=== PATIENT | female | born 2000 | race Caucasian/White ===

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

== ENCOUNTER 2023-01-08 16:46 | Emergency (ER) | payer OTHER ==
[2023-01-08 16:59] VITALS: BP 116/74; PULSE 88; RESP 18; TEMP 98.9; BMI 26.2
== END 2023-01-08 20:55 | disposition left against medical advice (07) ==
LOC: JERFT 16:46
DX: S80.911A Unspecified superficial injury of right knee, initial encounter (principal); M79.604 Pain in right leg; W19.XXXA Unspecified fall, initial encounter
CPT/HCPCS: 99281-25

== ENCOUNTER 2023-02-26 03:09 | Emergency (ER) | payer OTHER ==
[2023-02-26 03:43] VITALS: RESP 18; BMI 26.2
[2023-02-26] MEDS ORDERED: ACETAMINOPHEN INJECTION 100 ML IVPB ONE (03:52)
[2023-02-26] MEDS ORDERED: ACETAMINOPHEN 1000 MG/100 ML BAG IVPB ONE (03:55)
[2023-02-26 04:47] LABS: CHLORIDE 111 mmol/L (98-107); POTASSIUM 3.7 mmol/L (3.5-5.1); SODIUM 141 mmol/L (136-145)
[2023-02-26 04:49] LABS: CALCIUM 8.9 mg/dL (8.5-10.1)
[2023-02-26 04:50] LABS: ALBUMIN 3.7 g/dl (3.4-5.0); ANION GAP 6 MMOL/L (8-16); CO2 24 mmol/L (21-32); GLUCOSE,RANDOM 86 mg/dL (74-106)
[2023-02-26 04:53] LABS: CREATININE 0.6 mg/dL (0.55-1.3); SGOT/AST 16 U/L (15-37); SGPT/ALT 26 U/L (13-61)
[2023-02-26 04:54] LABS: TOT PROT 7.5 g/dl (6.4-8.2)
[2023-02-26 04:55] LABS: BILIRUBIN,TOTAL 0.1 mg/dL (0.2-1)
[2023-02-26 04:56] LABS: ALK PHOS 113 U/L (45-117)
[2023-02-26 04:59] LABS: EPI CELLS >36 /uL (0-25.1); HYALINE CASTS 1 /uL (0-3.1); URINE APPEARANCE CLEAR; URINE BILIRUBIN NEGATIVE (NEGATIVE); URINE COLOR YELLOW; URINE GLUCOSE (UA) NEGATIVE (NEGATIVE); URINE KETONE NEGATIVE (NEGATIVE); URINE LEUK ESTERASE NEGATIVE (NEGATIVE); URINE NITRITE NEGATIVE (NEGATIVE); URINE PROTEIN NEGATIVE (NEGATIVE); URINE RBC 5 /uL (0-23.9); URINE WBC 31 /uL (0-25.8)
[2023-02-26 05:54] LABS: BASO % 0.7 % (0-2.0); EOS % 1.9 % (0-4.5); HEMATOCRIT 37.7 % (32.4-45.2); HEMOGLOBIN 12.4 GM/dL (10.7-15.3); LYMPH % 31.1 % (8-40); MCH 28.5 pg (25.7-33.7); MCHC 32.8 g/dl (32.0-36.0); MEAN CELL VOLUME 86.8 fl (80-96); MEAN PLT VOLUME 11.4 fl (7.5-11.1); MONO % 7.6 % (3.8-10.2); NEUT % 58.7 % (42.8-82.8); PLATELET COUNT 213 10^3/uL (134-434); RBC 4.34 M/mm3 (3.60-5.2); RDW 13.7 % (11.6-15.6); WHITE BLOOD COUNT 7.9 K/mm3 (4.0-10.0)
[2023-02-26 10:11] VITALS: BP 107/68; PULSE 72; TEMP 98.2
== END 2023-02-26 10:11 | disposition home or self-care (01) ==
LOC: JER 03:09
PROC: 3E033NZ Introduction of Analgesics, Hypnotics, Sedatives into Peripheral Vein, Percutaneous Approach (ICD-10-PCS; principal; 2023-02-26)
DX: M25.521 Pain in right elbow (principal); R10.32 Left lower quadrant pain; M25.552 Pain in left hip
CPT/HCPCS: 36415; 73070-TC-RT-FY; 74177-TC; 80053; 81003; 84702; 85025; 85651; 86038; 86140; 86225; 86850; 86900; 86901; 87040; 87086; 93005; 93010; 99284-25; Q9967

== ENCOUNTER 2023-06-23 22:45 | Emergency (ER) | payer OTHER ==
[2023-06-23 22:52] VITALS: BMI 26.2
[2023-06-23] MEDS ORDERED: ACETAMINOPHEN 1000 MG/100 ML BAG IVPB ONE (23:18)
[2023-06-23] MEDS ORDERED: ONDANSETRON *ODT* 4 MG TABLET SL ONE (23:18)
[2023-06-23] MEDS ORDERED: ONDANSETRON *ODT* 4 MG TABLET ONE (23:27)
[2023-06-23] MEDS ORDERED: ACETAMINOPHEN INJECTION 100 ML IVPB ONE (23:27)
[2023-06-24 01:32] LABS: ACTIVATED PTT 35.8 SECONDS (25.2-36.5)
[2023-06-24 01:54] LABS: BASO % 0.3 % (0-2.0); EOS % 1.1 % (0-4.5); HEMATOCRIT 35.2 % (32.4-45.2); HEMOGLOBIN 12.1 GM/dL (10.7-15.3); LYMPH % 29.5 % (8-40); MCH 29.4 pg (25.7-33.7); MCHC 34.3 g/dl (32.0-36.0); MEAN CELL VOLUME 85.9 fl (80-96); NEUT % 62.1 % (42.8-82.8); PLATELET COUNT 192 10^3/uL (134-434); RDW 13.7 % (11.6-15.6); WHITE BLOOD COUNT 8.3 K/mm3 (4.0-10.0)
[2023-06-24 02:03] LABS: INR 1.16 (0.83-1.09); PROTHROMBIN TIME (PATIENT) 13.4 SEC (9.7-13.0)
[2023-06-24 02:32] LABS: POTASSIUM 3.8 mmol/L (3.5-5.1)
[2023-06-24 02:34] LABS: ALBUMIN 3.5 g/dl (3.4-5.0); BLOOD UREA NITROGEN 15.8 mg/dL (7-18); CALCIUM 8.3 mg/dL (8.5-10.1)
[2023-06-24 02:37] LABS: CREATININE 0.5 mg/dL (0.55-1.3)
[2023-06-24 02:39] LABS: BILIRUBIN,TOTAL 0.1 mg/dL (0.2-1)
[2023-06-24 03:35] VITALS: BP 106/55; PULSE 71; RESP 16; TEMP 98.6
[2023-06-24 08:39] LABS: EPI CELLS >36 /uL (0-25.1); HYALINE CASTS 0 /uL (0-3.1); URINE APPEARANCE CLEAR; URINE BACTERIA 7089 /uL (0-1359); URINE BILIRUBIN NEGATIVE (NEGATIVE); URINE COLOR YELLOW; URINE GLUCOSE (UA) NEGATIVE (NEGATIVE); URINE KETONE NEGATIVE (NEGATIVE); URINE LEUK ESTERASE TRACE (NEGATIVE); URINE NITRITE NEGATIVE (NEGATIVE); URINE PROTEIN NEGATIVE (NEGATIVE); URINE RBC 6 /uL (0-23.9); URINE WBC 34 /uL (0-25.8)
== END 2023-06-24 04:08 | disposition home or self-care (01) ==
LOC: JER 22:45
PROC: 3E033NZ Introduction of Analgesics, Hypnotics, Sedatives into Peripheral Vein, Percutaneous Approach (ICD-10-PCS; principal; 2023-06-24)
PROC: 3E033GC Introduction of Other Therapeutic Substance into Peripheral Vein, Percutaneous Approach (ICD-10-PCS; 2023-06-24)
DX: O26.891 Other specified pregnancy related conditions, first trimester (principal); R10.84 Generalized abdominal pain; M54.9 Dorsalgia, unspecified; N89.8 Other specified noninflammatory disorders of vagina; R11.0 Nausea; Z3A.01 Less than 8 weeks gestation of pregnancy
CPT/HCPCS: 36415; 76705-TC; 76817-TC; 80053; 81003; 83690; 84702; 84703; 85025; 85610; 85730; 86850; 86900; 86901; 87086; 87186; 99284-25; Q0162

== ENCOUNTER 2023-06-27 21:48 | Emergency (ER) | payer OTHER ==
[2023-06-27 22:12] VITALS: BP 96/61; PULSE 100; RESP 16; TEMP 98.6; BMI 26.2
[2023-06-28] MEDS ORDERED: ONDANSETRON *ODT* 4 MG TABLET SL ONE (01:01)
[2023-06-28] MEDS ORDERED: ONDANSETRON *ODT* 4 MG TABLET ONE (01:17)
[2023-06-28] MEDS ORDERED: ACETAMINOPHEN 325 MG TABLET (FP) PO ONE (01:21)
[2023-06-28] MEDS ORDERED: ACETAMINOPHEN 325 MG TABLET (FP) ONE (01:29)
[2023-06-28] MEDS ORDERED: ONDANSETRON 4 MG/2 ML VIAL IVPUSH ONE (03:13)
[2023-06-28] MEDS ORDERED: ONDANSETRON 4 MG/2 ML VIAL ONE (03:13)
== END 2023-06-28 04:50 | disposition home or self-care (01) ==
LOC: JER 21:48
PROC: 3E033GC Introduction of Other Therapeutic Substance into Peripheral Vein, Percutaneous Approach (ICD-10-PCS; principal; 2023-06-28)
DX: O26.899 Other specified pregnancy related conditions, unspecified trimester (principal); R42 Dizziness and giddiness; R10.30 Lower abdominal pain, unspecified; M54.9 Dorsalgia, unspecified; R11.0 Nausea; O9A.219 Injury, poisoning and certain other consequences of external causes complicating pregnancy, unspecified trimester; Z3A.00 Weeks of gestation of pregnancy not specified; W19.XXXA Unspecified fall, initial encounter
CPT/HCPCS: 36415; 76817-TC; 84702; 99284-25; Q0162

== ENCOUNTER 2023-07-10 17:42 | Emergency (ER) | payer OTHER ==
[2023-07-10 17:50] VITALS: TEMP 98; BMI 26.2
[2023-07-10 19:07] LABS: BASO % 0.4 % (0-2.0); EOS % 0.4 % (0-4.5); HEMATOCRIT 38.3 % (32.4-45.2); HEMOGLOBIN 12.9 GM/dL (10.7-15.3); LYMPH % 18.4 % (8-40); MCH 28.8 pg (25.7-33.7); MCHC 33.6 g/dl (32.0-36.0); MEAN PLT VOLUME 9.9 fl (7.5-11.1); MONO % 6.7 % (3.8-10.2); NEUT % 74.1 % (42.8-82.8); PLATELET COUNT 226 10^3/uL (134-434); RBC 4.46 M/mm3 (3.60-5.2); RDW 13.7 % (11.6-15.6); WHITE BLOOD COUNT 9.6 K/mm3 (4.0-10.0)
[2023-07-10 20:29] VITALS: BP 105/65; PULSE 85; RESP 17
== END 2023-07-10 20:31 | disposition home or self-care (01) ==
LOC: JER 17:42
DX: O20.9 Hemorrhage in early pregnancy, unspecified (principal); O26.891 Other specified pregnancy related conditions, first trimester; R10.30 Lower abdominal pain, unspecified; R11.0 Nausea; Z3A.01 Less than 8 weeks gestation of pregnancy
CPT/HCPCS: 36415; 76817-TC; 84702; 85025; 86850; 86900; 86901; 99283-25

== ENCOUNTER 2023-09-13 01:37 | Emergency (ER) | payer OTHER ==
[2023-09-13 01:42] VITALS: BP 102/69; PULSE 95; RESP 16; TEMP 98.5; BMI 25.8
[2023-09-13] MEDS ORDERED: ACETAMINOPHEN 500 MG TABLET (FP) PO ONE (02:24)
[2023-09-13 02:33] LABS: BASO % 0.4 % (0-2.0); EOS % 1.2 % (0-4.5); HEMATOCRIT 33.7 % (32.4-45.2); HEMOGLOBIN 11.6 GM/dL (10.7-15.3); LYMPH % 23.6 % (8-40); MCH 30.1 pg (25.7-33.7); MCHC 34.4 g/dl (32.0-36.0); MEAN CELL VOLUME 87.3 fl (80-96); MEAN PLT VOLUME 9.8 fl (7.5-11.1); MONO % 7.9 % (3.8-10.2); NEUT % 66.9 % (42.8-82.8); PLATELET COUNT 174 10^3/uL (134-434); RBC 3.86 M/mm3 (3.60-5.2); RDW 13.8 % (11.6-15.6); WHITE BLOOD COUNT 8.1 K/mm3 (4.0-10.0)
[2023-09-13] MEDS ORDERED: ACETAMINOPHEN 500 MG TABLET (FP) ONE (02:33)
[2023-09-13 02:35] LABS: EPI CELLS >36 /uL (0-25.1); HYALINE CASTS 1 /uL (0-3.1); PH,URINE 6.5 (5.0-8.0); URINE APPEARANCE CLOUDY; URINE BACTERIA 270 /uL (0-1359); URINE BILIRUBIN NEGATIVE (NEGATIVE); URINE COLOR YELLOW; URINE GLUCOSE (UA) NEGATIVE (NEGATIVE); URINE KETONE NEGATIVE (NEGATIVE); URINE LEUK ESTERASE 2+ (NEGATIVE); URINE NITRITE NEGATIVE (NEGATIVE); URINE PROTEIN NEGATIVE (NEGATIVE); URINE RBC 9 /uL (0-23.9); URINE UROBILINOGEN 0.2 mg/dL (0.2-1.0); URINE WBC 77 /uL (0-25.8)
[2023-09-13 03:07] LABS: POTASSIUM 4.1 mmol/L (3.5-5.1)
[2023-09-13 03:08] LABS: CALCIUM 8.6 mg/dL (8.5-10.1)
[2023-09-13] MEDS ORDERED: CEPHALEXIN MONOHYDRATE 500 MG CAPSULE (UD) PO ONE (03:08)
[2023-09-13 03:09] LABS: ALBUMIN 3.2 g/dl (3.4-5.0); BLOOD UREA NITROGEN 10.1 mg/dL (7-18)
[2023-09-13 03:12] LABS: CREATININE 0.4 mg/dL (0.55-1.3)
[2023-09-13 03:14] LABS: BILIRUBIN,TOTAL 0.2 mg/dL (0.2-1); TOT PROT 6.8 g/dl (6.4-8.2)
[2023-09-13] MEDS ORDERED: CEPHALEXIN MONOHYDRATE 500 MG CAPSULE (UD) ONE (03:18)
== END 2023-09-13 03:25 | disposition home or self-care (01) ==
LOC: JER 01:37
DX: O23.42 Unspecified infection of urinary tract in pregnancy, second trimester (principal); Z3A.14 14 weeks gestation of pregnancy
CPT/HCPCS: 36415; 76815; 80053; 81003; 83690; 85025; 86850; 86900; 86901; 87086; 99284-25

== ENCOUNTER 2023-09-13 18:21 | Emergency (ER) | payer OTHER ==
[2023-09-13 19:08] VITALS: BP 124/77; PULSE 86; RESP 17; TEMP 98.6; BMI 23.2
[2023-09-13] MEDS ORDERED: ACETAMINOPHEN 325 MG TABLET (FP) PO ONE (21:04)
[2023-09-13] MEDS ORDERED: ACETAMINOPHEN 325 MG TABLET (FP) ONE ×2 (21:35)
== END 2023-09-13 21:38 | disposition home or self-care (01) ==
LOC: JER 18:21
DX: O9A.212 Injury, poisoning and certain other consequences of external causes complicating pregnancy, second trimester (principal); S20.229A Contusion of unspecified back wall of thorax, initial encounter; W01.0XXA Fall on same level from slipping, tripping and stumbling without subsequent striking against object, initial encounter; Z3A.14 14 weeks gestation of pregnancy
CPT/HCPCS: 76815; 99283-25